=== PATIENT | female | born 1970 | race African-American/Black ===

== ENCOUNTER 2021-10-07 14:50 | Emergency (ER) | payer BC, OTHER ==
[~2021-10-07] VITALS: Ht 172.7 cm; Wt 104.0 kg
[2021-10-07] MEDS ORDERED: SODIUM CHLORIDE 0.9% 1,000 ML IV ONE (15:30)
[2021-10-07 16:22] LABS: CHLORIDE 110 mEq/L (98-107)
[2021-10-07 16:25] LABS: BASOPHILS % 0.3 % (0.0-2.0); EOSINOPHILS % 1.3 % (0.0-5.0); HEMATOCRIT. 39.2 % (36.0-48.0); HEMOGLOBIN. 13.4 g/dL (12.0-16.0); LYMPHOCYTES % 29.3 % (20.0-50.0); MEAN CORPUSCULAR HEMOGLOBIN 30.5 pg (28.0-32.0); MEAN CORPUSCULAR VOLUME 89.4 fL (81.0-99.0); MEAN PLATELET VOLUME 7.1 fl (7.4-10.4); MONOCYTES % 7.8 % (2.0-8.0); NEUTROPHILS % 61.3 % (40.0-76.0); PLATELET 497 x1000/uL (130-400); RED BLOOD CELL COUNT 4.39 mill/uL (4.2-5.4); RED CELL DISTRIBUTION WIDTH 13.9 % (11.6-14.6)
[2021-10-07 17:18] LABS: *AMPHETAMINES SCREEN URINE NEGATIVE (NEGATIVE)
[2021-10-07 17:19] LABS: *BARBITURATES SCREEN URINE NEGATIVE (NEGATIVE); *BENZODIAZEPINES SCREEN URINE NEGATIVE (NEGATIVE); *COCAINE SCREEN URINE NEGATIVE (NEGATIVE); CANNABINOID URINE SCREEN NEGATIVE (NEGATIVE); METHADONE URINE SCREEN NEGATIVE (NEGATIVE); OPIATES URINE SCREEN NEGATIVE (NEGATIVE); PHENCYCLIDINE URINE SCREEN NEGATIVE (NEGATIVE)
[2021-10-07] MEDS ORDERED: LORAZEPAM 2MG/ML CPJ IV ONE (18:00)
[2021-10-07] MEDS ORDERED: METOPROLOL TARTRATE 5MG/5ML VIAL IV SCH (18:00)
[2021-10-07] MEDS ORDERED: METO-396 MT (19:04)
[2021-10-07 20:00] VITALS: BP 117/75
== END 2021-10-07 20:25 | disposition home or self-care (01) ==
LOC: ER 14:50
DX: R00.0 Tachycardia, unspecified (principal); R00.2 Palpitations; F41.9 Anxiety disorder, unspecified; Z90.710 Acquired absence of both cervix and uterus
CPT/HCPCS: 36415; 71045; 80053; 80305; 83880; 84484; 85025; 93005; 96361; 96374; 96375; 99285; J2060; J3490; J7030